=== PATIENT | male | born 1985 | race Two or more races ===

== ENCOUNTER 2025-02-08 14:57 | Emergency (ER) | payer MEDICAID, OTHER ==
[~2025-02-08] VITALS: Ht 175.3 cm; Wt 202.1 kg
[2025-02-08] MEDS: TETANUS-DIPTH-ACEL PERTUSSIS 0.5ML SYR Tdap IM ONE (15:59)
--- NOTE | 2025-02-08 16:04 | ED.PDOC ---
HPI Comments This is a 39-year-old male that comes in with a cut on his finger. Patient states he was opening up a box with a knife and by accident the night clothes and cut through his finger. Lacerations through his right 3nd digit. He is not up-to-date on his tetanus shot either. Denies difficulty with moving his finger. Chief Complaint: Laceration Time Seen by MD: 15:40 Reviewed Notes: Nurses Notes, Medications, Allergies Allergies: Coded Allergies: NO KNOWN ALLERGIES (Unverified , 02/08/25) Information Source: Patient Mode of Arrival: Ambulatory Complexity: Simple Laceration Length (cm): 1 Past Medical History PAST MEDICAL HISTORY: DM Past Medical History (Other): Morbid obesity Social History Smoker: Non-Smoker Alcohol: Denies ETOH Use Drugs: Denies Drug Use Lives In: Home Integumetry: reports: laceration All Other Systems: Reviewed and Negative Physical Exam General Appearance: Obese HEENT: Normal ENT Inspection, PERRL/EOMI, Pharynx Normal Neck: Non-Tender, Normal, Supple Respiratory: Lungs Clear Cardiovascular: Regular Rate/Rhythm Breast Exam: Deferred Gastrointestinal: Non Tender, Soft, Other (Obese) Genitalia: Deferred Pelvic: Deferred Rectal: Deferred Extremities: Other (Laceration right 3rd finger) Neurologic: Alert, Normal Affect, Normal Mood Cerebellar Function: Other, NOT DONE Reflexes: NOT DONE Skin: Dry, Lacerations, Warm Lymphatic: No Adenopathy Was a procedure done? Was a procedure done?: Yes Sedation Sedation?: No Informed consent obtained: Yes Laceration Repair : Location Left 3rd digit Length 1 cm Anesthetic: Nothing Laceration Repair Prep: Saline Laceration Repair Wound Comple: epidermis/dermis repair Informed consent obtained: Yes Risks, benefits, and alternati: Yes Notes Wound was closed with three Steri-Strips and good approximation. Bleeding was controlled placed in a finger splint Differential diagnosis Generic Laceration: Tendon Injury X-Ray, Labs, Meds, VS Vital Signs Date Time Temp Pulse Resp B/P (MAP) Pulse Ox O2 Delivery O2 Flow Rate FiO2 02/08/25 15:03 98.3 66 18 150/110 95 98.3 X-Ray, Labs, Meds, VS Comment Patient seen and examined by me. Patient had a very simple cut on his left 3rd finger did not require suture repair was closed with Steri-Strips and a finger splint. Patient tolerated procedure well was happy that we did not have to suture. Patient was also given a tetanus shot today.. Time of 1ST Reevaluation: 16:00 Reevaluation 1ST: Improved Patient Education/Counseling: Diagnosis, Treatment, Prognosis, Need For Follow Up Family Education/Counseling: No Family Present Departure 1 Departure Time of Disposition: 16:01 Impression: Primary Impression: Laceration Disposition: 01 HOME / SELF CARE / HOMELESS Condition: Good Additional Instructions: Please keep the Steri-Strips in place do not pull them off it will fall off by itself, okay to trim the pieces as it starts to unravel Keep your finger in the immobilizer until the wound is healed Your arm will be sore from the tetanus shot that is normal Discharged With: Self Critical Care Note Critical Care Time?: No Stability Stability form required: GAMA Agarwal Feb 08, 2025 16:04
[2025-02-08 16:11] VITALS: BP 148/102; PULSE 63; RESP 18; TEMP 98; O2SAT 96
== END 2025-02-08 16:16 | disposition home or self-care (01) ==
LOC: ER 14:57
DX: S61.213A Laceration without foreign body of left middle finger without damage to nail, initial encounter (principal); E11.9 Type 2 diabetes mellitus without complications; E66.01 Morbid (severe) obesity due to excess calories; Z68.44 Body mass index [BMI] 60.0-69.9, adult; W26.0XXA Contact with knife, initial encounter; Y93.89 Activity, other specified; Y92.89 Other specified places as the place of occurrence of the external cause; Y99.8 Other external cause status
CPT/HCPCS: 29130; 90471; 90715